=== PATIENT | male | born 1985 | race Hispanic/Latino ===

== ENCOUNTER 2019-03-08 20:44 | Emergency (ER) | payer OTHER ==
[~2019-03-08] VITALS: Ht 170.2 cm; Wt 82.3 kg
[2019-03-08] MEDS ORDERED: SUMA100T2 PO (21:10)
[2019-03-08] MEDS ORDERED: diphenhydrAMINE INJ 50MG/ML VIAL (J1200) IV STA (22:03)
[2019-03-08] MEDS ORDERED: KETOROLAC 30 MG/ML VIAL (J1885) IV ONE (22:15)
[2019-03-08] MEDS ORDERED: METOCLOPRAMIDE INJ 10MG/2ML VIAL (J2765) IV ONE (22:15)
[2019-03-08] MEDS ORDERED: NS 1,000 ML IV ONE (22:15)
[2019-03-08 22:33] LABS: BASO # 0.1 10^3/uL (0.0-0.2); BASO % 0.5 % (0.0-1.0); EOS # 0.1 10^3/uL (0.0-0.50); EOS % 0.6 % (0.0-3.0); HEMATOCRIT 45.7 % (42.0-52.0); HEMOGLOBIN 15.3 g/dl (13.5-17.5); LYMPH # 1.5 10^3/uL (1.5-4.5); LYMPH % 13.9 % (24.0-44.0); MEAN CORPUSCULAR HEMOGLOBIN 29.8 pg (27.0-33.0); MEAN CORPUSCULAR HGB CONC 33.5 g/dl (32.0-36.5); MEAN CORPUSCULAR VOLUME 89.1 fl (80.0-96.0); MONO # 0.9 10^3/uL (0.0-0.8); NEUTROPHILS # 8.4 10^3/uL (1.8-7.7); NEUTROPHILS % 76.6 % (36.0-66.0); PLATELET COUNT, AUTOMATED 192 10^3/uL (150-450); RED BLOOD COUNT 5.13 10^6/uL (4.30-6.10); WHITE BLOOD COUNT 10.9 10^3/uL (4.0-10.0)
--- NOTE | 2019-03-08 22:43 | REPVR ---
EXAM: CT Head Without Contrast EXAM DATE/TIME: 03/08/2019 10:08 PM CLINICAL HISTORY: 33 years old, male; Pain; Headache; Migraine; Aura effect not specified; Does not respond to medication; Additional info: New onset migraine, refractory tx TECHNIQUE: Imaging protocol: Axial computed tomography images of the head without contrast. Radiation optimization: All CT scans at this facility use at least one of these dose optimization techniques: automated exposure control; mA and/or kV adjustment per patient size (includes targeted exams where dose is matched to clinical indication); or iterative reconstruction. COMPARISON: No relevant prior studies available. FINDINGS: Brain: Normal. No hemorrhage. Unremarkable white matter. No mass effect. Ventricles: Normal. No ventriculomegaly. Bones/joints: Unremarkable. No acute fracture. Sinuses: Visualized sinuses are unremarkable. No fluid levels. Mastoid air cells: Visualized mastoid air cells are well aerated. No mastoid effusion. Soft tissues: Unremarkable. IMPRESSION: No acute intracranial abnormality. Electronically signed by: Rhona Segura On 03/08/2019 22:42:55 PM
[2019-03-08 22:54] LABS: BLOOD UREA NITROGEN 13 MG/DL (7-18); CALCIUM LEVEL 8.7 MG/DL (8.5-10.1); CARBON DIOXIDE LEVEL 28 MEQ/L (21-32); CHLORIDE LEVEL 106 MEQ/L (98-107); CREATININE FOR GFR 1.06 MG/DL (0.70-1.30); GLOMERULAR FILTRATION RATE > 60.0 (>60); GLUCOSE, FASTING 92 MG/DL (70-100); POTASSIUM SERUM 4.4 MEQ/L (3.5-5.1); SODIUM LEVEL 141 MEQ/L (136-145)
[2019-03-08 23:19] VITALS: BP 119/73
[2019-03-08 23:43] LABS: ERYTHROCYTE SEDIMENTATION RATE 6 mm/hr (0-15)
[2019-03-09] MEDS ORDERED: REGL10TA6 PO (00:09)
[2019-03-09] MEDS ORDERED: NAPR-837 PO (00:09)
== END 2019-03-09 00:28 | disposition home or self-care (01) ==
LOC: M ED 20:44
DX: G44.209 Tension-type headache, unspecified, not intractable (principal); Z79.899 Other long term (current) drug therapy
CPT/HCPCS: 70450; 80048; 85025; 85652; 99284; J1200; J1885; J2765

== ENCOUNTER 2019-09-30 12:43 | Emergency (ER) | payer OTHER ==
[~2019-09-30] VITALS: Ht 170.2 cm; Wt 87.7 kg
[~2019-09-30 12:43] MED LIST: NAPR-837 PO; REGL10TA6 PO; SUMA100T2 PO
[2019-09-30 12:47] VITALS: BP 139/74
[2019-09-30] MEDS ORDERED: IBUPROFEN 600 MG TAB PO ONE (13:30)
[2019-09-30] MEDS ORDERED: IBUP-1022 PO (13:40)
--- NOTE | 2019-09-30 13:59 | REP ---
LEFT ANKLE SERIES: Four views. HISTORY: Injury. FINDINGS: Four views of the left ankle demonstrate an intact ankle mortise. Anterolateral soft tissue swelling is seen. No fracture is seen. There are fairly large Achilles and plantar calcaneal spurs. The anterior border of the Achilles tendon appears smooth. IMPRESSION: No fracture seen. Heel spurs. Mild to moderate anterolateral soft-tissue swelling. Electronically Signed by Shane Vilchis MD 09/30/2019 04:12 P
== END 2019-09-30 13:45 | disposition home or self-care (01) ==
LOC: M ED 12:43
DX: S93.402A Sprain of unspecified ligament of left ankle, initial encounter (principal); M77.32 Calcaneal spur, left foot; X50.1XXA Overexertion from prolonged static or awkward postures, initial encounter; Y92.098 Other place in other non-institutional residence as the place of occurrence of the external cause; Y93.67 Activity, basketball